=== PATIENT | female | born 1985 | race Caucasian/White ===

== ENCOUNTER 2016-12-24 07:02 | Emergency (ER) | payer SELFPAY ==
[~2016-12-24] VITALS: Ht 172.7 cm; Wt 100.0 kg
[~2016-12-24 07:02] MED LIST: AMBIEN 10MG10 MG PO; AMOXICILLIN 50500 MG PO; BENADRYL25 M2; BIRTH CONTROL PILLS; CLARINEX-D 24 H1 T24 PO; CLEOCIN HC150 MG/CAP PO; CLEOCIN HCL300 MG PO; CYMBALTA 30MG30 MG PO; CYMBALTA 60MG60 MG PO; ECHINACEA100 MG; FIORICET 325 MG1 TA1 PO; IRON65 M1 PO; KLONOPIN 0.5MG0.5 MG PO; LORTAB 7.5/5001 TAB; MULTIPLE VITAMI1 CAP PO; NORCO 325 MG-51 TAB PO; NORCO 325 MG-7.1 TAB PO; PEN-VEE K500 MG PO; PERCR 7.5 PO; PHENERGAN 25 TA25 MG PO; PRENATAL1 TA2 PO; PROAIR HFA0.09 MG/AC IH; PROBIOTIC FORMU1 CAP PO; SYNTHROID0.05 MG/TA PO; TRI-SPRINTEC 281 TAB; TRIAMCINOLONE0.1% TP; TYLENOL W/COD1 UDTAB PO; VITAMIN C500 MG; ZOFRAN ODT4 MG PO; ZOFRAN8 MG PO
[2016-12-24 07:03] VITALS: TEMP 97.8
[2016-12-24] MEDS ORDERED: PHENERGAN 25 TA25 MG PO ×2 (07:08→10:18)
[2016-12-24] MEDS ORDERED: CALCIUM-MAGNES1 EAC1 PO (07:09)
[2016-12-24] MEDS ORDERED: MAGNESIUM100 MG (07:09)
[2016-12-24] MEDS ORDERED: MUCINEX1200 MG PO (07:09)
[2016-12-24 08:03] LABS: BASO # 0.1 (0.0-0.2); BASO % 0.5 % (0.0-2.0); EOS # 0.2 (0.0-0.7); EOS % 1.6 % (0-4.0); GRAN # 6.1 (1.4-6.5); GRAN % 55.8 % (42.2-75.2); HEMOGLOBIN 12.1 g/dl (12.5-16.0); LYMPH # 3.7 (1.2-3.4); LYMPH % 34.1 % (20.0-51.0); MEAN CELL VOLUME 85 fl (80.0-100.0); MEAN CORPUSCULAR HEMOGLOBIN 29 pg (27.0-31.0); MEAN CORPUSCULAR HGB CONC 34 g/dl (33.0-37.0); MEAN PLATELET VOLUME 9.9 fl (7.4-10.4); MONO # 0.9 (0.1-0.6); MONO % 7.8 % (1.7-9.3); PLATELET COUNT 306 K/mm3 (130-400); RED BLOOD COUNT 4.21 M/mm3 (4.10-5.30); REDCELL DISTRIBUTION WIDTH-CV 12.1 % (11.5-14.5); WHITE BLOOD COUNT 10.9 K/mm3 (4.8-10.8)
[2016-12-24 08:04] LABS: HEMATOCRIT 35.6 % (37.0-47.0); PH 6 (5-8); SQUAMOUS EPITHELIAL 0-2 /hpf; URINE APPEARANCE Clear; URINE BACTERIA None Seen /hpf; URINE BILIRUBIN Negative (NEGATIVE); URINE BLOOD Negative (NEGATIVE); URINE COLOR Yellow; URINE GLUCOSE Negative (NEGATIVE); URINE KETONE Negative (NEGATIVE); URINE RBC 0-2 /hpf; URINE UROBILINOGEN Negative (NEGATIVE); URINE WBC 0-2 /hpf
[2016-12-24 08:20] LABS: ADJUSTED CALCIUM 9.1 mg/dL (8.4-10.2); ALBUMIN 4.8 gm/dL (3.5-5.0); BILIRUBIN,TOTAL 0.6 mg/dL (0.0-1.0); CALCIUM 9.7 mg/dL (8.4-10.2); CREATININE, serum 0.68 mg/dL (0.52-1.25); POTASSIUM 3.5 mmol/L (3.4-5.0); TOTAL PROTEIN 8.5 gm/dL (6.4-8.2)
[2016-12-24] MEDS ORDERED: NORCO 325 MG-51 TAB PO (10:18)
[2016-12-24] MEDS ORDERED: CEPHALEXIN500 M1 PO (10:18)
[2016-12-24 10:36] VITALS: BP 125/81; PULSE 90
== END 2016-12-24 10:40 | disposition home or self-care (01) ==
LOC: COL.ER 07:02
PROVIDERS: Emergency Medicine
DX: N83.202 Unspecified ovarian cyst, left side (principal); R10.32 Left lower quadrant pain; N20.0 Calculus of kidney
CPT/HCPCS: J0696; J1170; J1200; J1885; J2550; J7030; Q9967

== ENCOUNTER 2017-03-02 15:54 | Emergency (ER) | payer SELFPAY ==
[~2017-03-02] VITALS: Ht 172.7 cm; Wt 97.7 kg
[~2017-03-02 15:54] MED LIST changes: +CALCIUM-MAGNES1 EAC1 PO; +CEPHALEXIN500 M1 PO; +MAGNESIUM100 MG; +MUCINEX1200 MG PO
[2017-03-02 15:58] VITALS: TEMP 98.2
[2017-03-02 17:07] LABS: BASO # 0.1 (0.0-0.2); BASO % 0.7 % (0.0-2.0); EOS # 0.2 (0.0-0.7); EOS % 2.3 % (0-4.0); GRAN # 4.8 (1.4-6.5); GRAN % 64.9 % (42.2-75.2); LYMPH # 1.7 (1.2-3.4); LYMPH % 23.1 % (20.0-51.0); MEAN CELL VOLUME 87 fl (80.0-100.0); MEAN CORPUSCULAR HGB CONC 33 g/dl (33.0-37.0); MEAN PLATELET VOLUME 9.5 fl (7.4-10.4); MONO # 0.7 (0.1-0.6); MONO % 8.7 % (1.7-9.3); PLATELET COUNT 268 K/mm3 (130-400); RED BLOOD COUNT 3.72 M/mm3 (4.10-5.30); REDCELL DISTRIBUTION WIDTH-CV 12.7 % (11.5-14.5); WHITE BLOOD COUNT 7.5 K/mm3 (4.8-10.8)
[2017-03-02 17:11] LABS: HEMATOCRIT 32.3 % (37.0-47.0); HEMOGLOBIN 10.8 g/dl (12.5-16.0); MEAN CORPUSCULAR HEMOGLOBIN 29 pg (27.0-31.0)
[2017-03-02 17:20] LABS: ADJUSTED CALCIUM 8.7 mg/dL (8.4-10.2); ALANINE AMINOTRANSFERASE 27 U/L (9-52); ALBUMIN 4.2 gm/dL (3.5-5.0); ALKALINE PHOSPHATASE 73 U/L (50-136); ANION GAP 12 mmol/L (7-16); BILIRUBIN,TOTAL 0.5 mg/dL (0.0-1.0); BLOOD UREA NITROGEN 5 mg/dL (7-17); CALCIUM 8.9 mg/dL (8.4-10.2); CARBON DIOXIDE 26 mmol/L (22-30); CHLORIDE 102 mmol/L (98-107); CREATININE, serum 0.61 mg/dL (0.52-1.25); GLUCOSE 87 mg/dL (74-106); POTASSIUM 3.6 mmol/L (3.4-5.0); SODIUM 140 mmol/L (137-145); TOTAL PROTEIN 6.9 gm/dL (6.4-8.2)
[2017-03-02 17:33] LABS: TROPONIN-I < 0.012 ng/mL (0.000-0.034)
[2017-03-02 18:12] VITALS: BP 110/73; PULSE 65
== END 2017-03-02 18:14 | disposition home or self-care (01) ==
LOC: COL.ER 15:54
PROVIDERS: Physician Assistant
DX: R07.9 Chest pain, unspecified (principal); R53.1 Weakness; R10.2 Pelvic and perineal pain; K50.90 Crohn's disease, unspecified, without complications
CPT/HCPCS: J2270; J2405

== ENCOUNTER 2018-02-02 18:44 | Emergency (ER) | payer SELFPAY ==
[~2018-02-02] VITALS: Ht 172.7 cm; Wt 100.0 kg
[2018-02-02] MEDS ORDERED: NORCO 325 MG-51 TAB PO (19:07)
[2018-02-02] MEDS ORDERED: AMOXICILLIN 50500 MG PO (19:07)
[2018-02-02 19:59] VITALS: BP 134/79; PULSE 112; TEMP 99.1
== END 2018-02-02 19:32 | disposition home or self-care (01) ==
LOC: COL.ER 18:44
DX: K02.9 Dental caries, unspecified (principal); F32.9 Major depressive disorder, single episode, unspecified; F41.9 Anxiety disorder, unspecified; K50.90 Crohn's disease, unspecified, without complications; E03.9 Hypothyroidism, unspecified; F17.210 Nicotine dependence, cigarettes, uncomplicated; F12.10 Cannabis abuse, uncomplicated; Z98.818 Other dental procedure status

== ENCOUNTER 2018-06-04 10:41 | Emergency (ER) | payer SELFPAY ==
[~2018-06-04] VITALS: Ht 172.7 cm; Wt 100.0 kg
[2018-06-04 10:50] VITALS: BP 119/67; TEMP 98.7
[2018-06-04] MEDS ORDERED: DOXYCYCLINE 10100 MG PO (11:39)
[2018-06-04 11:46] VITALS: PULSE 78
== END 2018-06-04 11:46 | disposition home or self-care (01) ==
LOC: COL.ER 10:41
DX: S90.561A Insect bite (nonvenomous), right ankle, initial encounter (principal); L03.115 Cellulitis of right lower limb; K50.90 Crohn's disease, unspecified, without complications; E03.9 Hypothyroidism, unspecified; F32.9 Major depressive disorder, single episode, unspecified; F17.210 Nicotine dependence, cigarettes, uncomplicated; Z98.890 Other specified postprocedural states; W57.XXXA Bitten or stung by nonvenomous insect and other nonvenomous arthropods, initial encounter

== ENCOUNTER 2020-05-04 13:08 | Emergency (ER) | payer SELFPAY ==
[~2020-05-04] VITALS: Ht 172.7 cm; Wt 104.5 kg
[~2020-05-04 13:08] MED LIST changes: -BENADRYL25 M2; +BENADRYL25 M2 PO; +DOXYCYCLINE 10100 MG PO
[2020-05-04 13:12] VITALS: BP 108/76; TEMP 98.5
[2020-05-04] MEDS ORDERED: [UNRECOGNIZED DRUG - OTHER] PO (13:28)
[2020-05-04] MEDS ORDERED: CEPHALEXIN500 M1 PO (13:36)
[2020-05-04 14:03] VITALS: PULSE 90
== END 2020-05-04 14:02 | disposition home or self-care (01) ==
LOC: COL.ER 13:08
DX: S51.811A Laceration without foreign body of right forearm, initial encounter (principal); E03.9 Hypothyroidism, unspecified; Z23 Encounter for immunization; Z79.890 Hormone replacement therapy; W25.XXXA Contact with sharp glass, initial encounter; Y92.009 Unspecified place in unspecified non-institutional (private) residence as the place of occurrence of the external cause

== ENCOUNTER 2021-02-23 15:48 | Emergency (ER) | payer SELFPAY ==
[~2021-02-23 15:48] MED LIST changes: +[UNRECOGNIZED DRUG - OTHER] PO
[2021-02-23 15:56] VITALS: TEMP 98.1
[2021-02-23] MEDS ORDERED: NORCO 325 MG-51 TAB PO ×3 (16:46→17:26)
[2021-02-23 17:25] VITALS: BP 126/79; PULSE 95
== END 2021-02-23 17:25 | disposition home or self-care (01) ==
LOC: COL.ER 15:48
DX: S93.401A Sprain of unspecified ligament of right ankle, initial encounter (principal); F32.9 Major depressive disorder, single episode, unspecified; F41.9 Anxiety disorder, unspecified; G47.00 Insomnia, unspecified; F17.290 Nicotine dependence, other tobacco product, uncomplicated; Z91.040 Latex allergy status; X50.1XXA Overexertion from prolonged static or awkward postures, initial encounter; Z79.899 Other long term (current) drug therapy; Y92.59 Other trade areas as the place of occurrence of the external cause; Y99.0 Civilian activity done for income or pay
CPT/HCPCS: L4386

== ENCOUNTER 2021-04-14 10:44 | Outpatient (RCR) | payer OTHER | END 2021-05-27 | disposition home or self-care (01) | LOC: WSOH | DX: S96.911A Strain of unspecified muscle and tendon at ankle and foot level, right foot, initial encounter (principal); M79.7 Fibromyalgia; F32.9 Major depressive disorder, single episode, unspecified; K50.90 Crohn's disease, unspecified, without complications; Z98.890 Other specified postprocedural states; Y99.0 Civilian activity done for income or pay ==

== ENCOUNTER 2021-06-30 14:24 | Outpatient (RCR) | payer OTHER | END 2021-07-14 15:20 | disposition home or self-care (01) | LOC: WSOH 14:24 | DX: S96.911D Strain of unspecified muscle and tendon at ankle and foot level, right foot, subsequent encounter (principal); M79.7 Fibromyalgia; F32.9 Major depressive disorder, single episode, unspecified; K50.90 Crohn's disease, unspecified, without complications; Y99.0 Civilian activity done for income or pay; Z87.59 Personal history of other complications of pregnancy, childbirth and the puerperium ==

== ENCOUNTER 2024-07-24 13:43 | Emergency (ER) | payer BC ==
[~2024-07-24] VITALS: Ht 172.7 cm; Wt 127.3 kg
[2024-07-24 14:00] VITALS: TEMP 98.3
[2024-07-24] MEDS ORDERED: Morphine 4 MG/ML VIAL IV ONE (17:30)
[2024-07-24] MEDS ORDERED: NS 1,000 ML IV ONE (17:30)
[2024-07-24] MEDS ORDERED: Ondansetron 4 MG/2 ML VIAL IV ONE (17:30)
[2024-07-24 17:52] LABS: BASO % 0.2 % (0.0-2.0); EOS # 0.1 K/mm3 (0.0-0.7); EOS % 1.2 % (0.0-4.0); GRAN # 6.4 K/mm3 (1.4-6.5); GRAN % 68.3 % (42.2-75.2); HEMATOCRIT 29.1 % (37.0-47.0); HEMOGLOBIN 9.6 g/dl (12.5-16.0); LYMPH # 1.8 K/mm3 (1.2-3.4); LYMPH % 19.4 % (20.0-51.0); MEAN CELL VOLUME 83 fl (80.0-100.0); MEAN CORPUSCULAR HEMOGLOBIN 27 pg (27-31); MEAN CORPUSCULAR HGB CONC 33 g/dl (33.0-37.0); MEAN PLATELET VOLUME 9.3 fl (7.4-10.4); MONO % 10.3 % (1.7-9.3); PLATELET COUNT 285 K/mm3 (130-400); RED BLOOD COUNT 3.52 M/mm3 (4.10-5.30); REDCELL DISTRIBUTION WIDTH-CV 15.3 % (11.5-14.5)
[2024-07-24 18:21] LABS: ALBUMIN 3.1 g/dL (3.5-5.0); BILIRUBIN,TOTAL 0.3 mg/dL (0.2-1.2); CALCIUM 9.3 mg/dL (8.4-10.2); CREATININE, serum 0.55 mg/dL (0.57-1.11); POTASSIUM 3.1 mEq/L (3.5-4.5); TOTAL PROTEIN 6.7 g/dl (6.2-8.1)
[2024-07-24] MEDS ORDERED: ZOFRAN ODT4 MG PO (19:09)
[2024-07-24 19:16] VITALS: BP 114/78; PULSE 82
== END 2024-07-24 19:17 | disposition home or self-care (01) ==
LOC: COL.ER 13:43
PROVIDERS: Personal Emergency Response Attendant
DX: O21.9 Vomiting of pregnancy, unspecified (principal); O26.891 Other specified pregnancy related conditions, first trimester; R11.10 Vomiting, unspecified; Z3A.24 24 weeks gestation of pregnancy
CPT/HCPCS: J2270; J2405; J7030

== ENCOUNTER 2024-09-04 08:57 | Outpatient (CLI) | payer BC, OTHER ==
[~2024-09-04] VITALS: Ht 172.7 cm; Wt 129.1 kg
[2024-09-04 09:30] VITALS: BP 117/67; PULSE 96
--- NOTE | 2024-09-04 09:30 | NUR ---
0900- Pt escorted to the unit via wheelchair by this RN. Taken to [facility]. 0907- Pt into bed. EFM and TOCO on and tracing. Assessments completed. Pt states she has been having contractions for the past couple of days, reports they were worse last night. Denies VB/LOF. +FM per Pt. Pt denies intercourse in past 24hrs.
[2024-09-04] MEDS ORDERED: FERROUS SU325 MG/TAB PO (09:31)
[2024-09-04] MEDS ORDERED: COLACE 100100 MG/CAP PO (09:31)
[2024-09-04] MEDS ORDERED: LEXAPRO20 MG PO (09:32)
[2024-09-04] MEDS ORDERED: LR 1,000 ML IV PRN (09:45)
[2024-09-04 10:07] VITALS: BP 109/68; PULSE 83
--- NOTE | 2024-09-04 10:07 | NUR ---
0941- Pt's verbal consent obtained for SVE, cervix closed/thick. Scant amount of pink noted in discharge, Pt tolerated exam well. 1007- EFM and TOCO off. Discharge paperwork given and explained. Pt denies questions or concerns at this time. 1015- Pt ambulates off unit with her son.
== END 2024-09-04 10:15 | disposition home or self-care (01) ==
LOC: LDRO 08:57
DX: O47.03 False labor before 37 completed weeks of gestation, third trimester (principal); Z3A.32 32 weeks gestation of pregnancy